=== PATIENT | male | born 1980 | race Caucasian/White ===

== ENCOUNTER 2016-10-17 16:38 | Emergency (ER) | payer MEDICAID ==
[~2016-10-17] VITALS: Ht 185.4 cm; Wt 85.4 kg
[2016-10-17 17:00] VITALS: BP 129/85
[2016-10-17] MEDS ORDERED: HYDROcodone/APAP 5/325 TABLET PO ONE (17:30)
[2016-10-17] MEDS ORDERED: KETOROLAC 30 MG/1 ML IM ONE (17:30)
[2016-10-17] MEDS ORDERED: HYDROcodone/APAP 5/325 TABLET ONE ×2 (17:33→17:36)
[2016-10-17] MEDS ORDERED: KETOROLAC 30 MG/1 ML ONE (17:33)
== END 2016-10-17 18:27 | disposition home or self-care (01) ==
LOC: ED 17:53
DX: S20.219A Contusion of unspecified front wall of thorax, initial encounter (principal); X58.XXXA Exposure to other specified factors, initial encounter; Y93.89 Activity, other specified; Y92.89 Other specified places as the place of occurrence of the external cause; Y99.8 Other external cause status
CPT/HCPCS: 71101; 96372; 99284; J1885

== ENCOUNTER 2018-09-12 15:34 | Emergency (ER) | payer SELFPAY ==
[~2018-09-12] VITALS: Ht 185.4 cm; Wt 95.0 kg
[2018-09-12 15:51] VITALS: BP 122/78
--- NOTE | 2018-09-12 16:20 | NUR ---
Pt ambulated to room with EDTA.
--- NOTE | 2018-09-12 16:48 | NUR ---
EDT and student at bedside for splint.
--- NOTE | 2018-09-12 16:54 | NUR ---
Pt refused splint. Pt to be discharged.
--- NOTE | 2018-09-12 16:56 | NUR ---
Patient/Caregiver given discharge instructions and they have confirmed that they understand the instructions. Patient ambulatory with steady gait.
== END 2018-09-12 16:57 | disposition home or self-care (01) ==
LOC: ED 16:41
DX: M65.4 Radial styloid tenosynovitis [de Quervain] (principal)
CPT/HCPCS: 99283